=== PATIENT | male | born 1955 | race Caucasian/White ===

== ENCOUNTER 2016-10-14 15:14 | Inpatient (IN) | payer OTHER ==
--- NOTE | 2016-10-14 15:29 | ED Physician Chart ---
Chief Complaint/HPI - Patient Information Date Seen:: 10/14/16 Time Seen:: 15:15 Chief Complaint:: Chest Pain History of Present Illness:: onset x one week of intermittent exertional pressure type retrosternal localized Chest Pain with Dyspnea; no H/As, neck pain, cough, Abd. pain, A/N/V/D /c, fever, chills, or urinary s/s Allergies:: Allergies Allergy/AdvReac Type Severity Reaction Status Date / Time No Known Allergies Allergy Verified 10/14/16 15:22 Historian:: Patient, Family Member Review:: Nurse's Note Reviewed, Transfer documents Reviewed Review of Systems - Review of Systems General/Constitutional: Fever, Chills, No weight loss, No weakness, No diaphoresis, No edema, No loss of appetite Skin: No skin lesions, Rash, No bruising Head: No headache, No light-headedness Eyes: No loss of vision, No pain, No diplopia ENT: No earache, No nasal drainage, No sore throat, No tinnitus Neck: No neck pain, No swelling, No thyromegaly, No stiffness, No mass noted Cardio Vascular: Chest pain, Palpitations, No PND, No orthopnea, No edema Pulmonary: SOB, Cough, No sputum, No wheezing GI: Nausea, Vomiting, Diarrhea, No pain, No melena, No hematochezia, No constipation, No hematemesis G/U: No dysuria, No frequency, No hematuria Musculoskeletal: No bone or joint pain, No back pain, No muscle pain Endocrine: Polyuria, Polydipsia Psychiatric: No prior psych history, No depression, No anxiety, No suicidal ideation, No homicidal ideation, No auditory hallucination, No visual hallucination Hematopoietic: No bruising, No lymphadenopathy Allergic/Immuno: No urticaria, No angioedema Neurological: No syncope, No focal symptoms, No weakness, No paresthesia, No headache, No seizure, No dizziness, No confusion, No vertigo Past Medical History - Past Medical History Obtainable: Yes Past Medical History: DM, Asthma/COPD Family History: Diabetes Melitus, HTN Social History: Non Smoker, No Alcohol, No Drug Use, Surgical History: None Psychiatricy History: None Medication: Reviewed Family Medical History - Family Member Mother Other Medical History: negative family history Physical Exam - Physical Examination General/Constitutional: Awake, Well-developed, well-nourished, Alert, No distress, GCS 15, Non-toxic appearing, Ambulatory Head: Atraumatic Eyes: Lids, conjuctiva normal, PERRL, EOMI Skin: Nl inspection, No rash, No skin lesions, No ecchymosis, Well hydrated, No lymphadenopathy ENMT: External ears, nose nl, Nasal exam nl, Lips, teeth, gums nl Neck: Nontender, Full ROM w/o pain, No JVD, No nuchal rigidity, No bruit, No mass, No stridor Respiratory: Nl effort/Exclusion, Clear to Auscultation, No Wheeze/Rhonchi/Rales Cardio Vascular: RRR, No murmur, gallop, rubs, NL S1 S2 GI: No tenderness/rebounding/guarding, No organomegaly, No hernia, Normal BS's, Nondistended, No mass/bruits, No McBurney tenderness : No CVA tenderness Extremities: No tenderness or effusion, Full ROM, normal strength in all extremities, No edema, Normal digits & nails Neuro/Psych: Alert/oriented, DTR's symmetric, Normal sensory exam, Normal motor strength, Judgement/insight normal, Mood normal, Normal gait, No focal deficits Misc: normal gait, Normal back, No paraspinal tenderness Labs/Radiology/EKG Results - Lab Results Comments:: unremarkable - Radiology Results Results: NAD - EKG Interpretations Rate & Rhythm: NSR Comments:: non-specific st-t changes ED Septic Shock - . Is Septic Shock (SBP<90, OR Lactate>4 mmol\L) present?: No Reassessment (Disposition) - Reassessment Reassessment Condition:: Improved - Diagnosis Diagnosis:: Chest Pain; Dyspnea; Asthma; Unstable Angina; Angina Pectoris - Aftercare/Follow up Instructions Aftercare/Follow-Up Instructions:: Counseled pt regarding lab results/diagnosis & need follow up, Counseled pt & family regarding lab results/diagnosis & need follow up - Patient Disposition Discharge/Transfer:: Acute Care w/in this hosp Accepting Physician:: Dr. Nam Time Called:: 2039 Time Responded:: 20:50 Admitted to:: Telemetry Spoke to:: Dr. Nam Admitting Medical Physician:: Dr. Nam Condition at Disposition:: Stable, Improved
[2016-10-14] MEDS ORDERED: Aspirin 81mg Chewable Tab PO STA (15:30)
[2016-10-14] MEDS ORDERED: NITROGLYCERIN OINT 2% 1 INCH PACKET TP STA (15:30)
[2016-10-14 15:43] LABS: % BASOPHILS 0.1 % (0.0-2.0); % EOSINOPHILS 1.9 % (0.0-5.0); % LYMPHOCYTES 21.6 % (20.0-50.0); % NEUTROPHILS 68.4 % (40.0-80.0); HEMOGLOBIN 16.3 gm/dL (13.2-17.3); MEAN CELL VOLUME 88.9 fl (80-99); MEAN CORPUSCULAR HEMOGLOBIN 30.1 pg (26.0-30.0); MEAN CORPUSCULAR HGB CONC 33.9 pg (28.0-36.0); MEAN PLATELET VOLUME 7.6 fl; NEUTROPHILE ABSOLUTE 5.6 Th/cmm (1.8-8.0); PLATELET COUNT 280 Th/cmm (150-400); RED CELL DISTRIBUTION WIDTH 12.3 % (11.5-20.0); WHITE BLOOD COUNT 8.1 Th/cmm (4.8-10.8)
[2016-10-14] MEDS ORDERED: Aspirin 81mg Chewable Tab ONE (15:47)
[2016-10-14] MEDS ORDERED: NITROGLYCERIN OINT 2% 1 INCH PACKET TP ONE (15:48)
--- NOTE | 2016-10-14 16:07 | Diagnostic Imaging Report ---
Exam: Portable chest x-ray. HISTORY: Chest pain. Findings: Portable examination of the chest at 1548 hours was reviewed the study demonstrates no active pulmonic infiltrates or effusions. Mediastinal structures midline the heart is not enlarged. Bony thorax is intact. IMPRESSION: No acute disease
[2016-10-14 16:09] LABS: PROTHROMBIN TIME (TEST) 10.4 SECONDS (9.5-11.5)
[2016-10-14 16:20] LABS: BNP < 5.0 pg/mL (5.0-100.0)
[2016-10-14 16:21] LABS: TROP I < 0.01 ng/mL (0.01-0.05)
[2016-10-14 16:41] LABS: ANION GAP 10.7 (7.0-16.0); BUN - UREA NITROGEN 11 mg/dL (7-25); CALCIUM SERUM 10.1 mg/dL (8.6-10.3); CARBON DIOXIDE 23.9 mEq/L (21.0-31.0); CHLORIDE 104 mEq/L (98-107); CHOLESTEROL 199 mg/dL (<200); GLUCOSE 125 mg/dL (70-105); POTASSIUM SERUM 3.6 mEq/L (3.5-5.1); SODIUM SERUM 135 mEq/L (136-145); TRIGLYCERIDES 437 mg/dL (<150)
[2016-10-14] MEDS ORDERED: Albuterol Nebulizer 2.5mg/3mL HHN STA (20:34)
[2016-10-14] MEDS ORDERED: Albuterol Nebulizer 2.5mg/3mL HHN ONE (20:50)
[2016-10-14] MEDS ORDERED: Albuterol/Ipratropium Neb 3 ML AERS HHN PRN (22:06)
[2016-10-14] MEDS ORDERED: Azithromycin 500 MG in Sodium Chloride 0.9% 250 ML IV SCH (22:15)
[2016-10-14] MEDS: Albuterol/Ipratropium Neb 3 ML AERS HHN SCH (23:43)
--- NOTE | 2016-10-15 00:02 | Admit Criteria Form ---
Admit Criteria Forms - Admit Criteria Diagnosis: CARDIOLOGY GRG Clinical Indications for Admission to Inpatient Care ( Place 'X' for any and all applicable criteria): Hospital admission is needed for appropriate care of the patient because of ANY ONE of the following (1): [ ] I. Hemodynamic instability as indicated by ALL of the following (1)(2)(3) (4)(5) [ ]a) Vital signs or other findings not as expected for chronic patient condition or baseline [ ]b) Instability indicated by ANY ONE of the following: [ ]i) Hypotension [ ]ii) Symptomatic Tachycardia unresponsive to treatment ( e.g., analgesia, fluids, sedation as indicated) [ ]iii) Inadequate perfusion indicated by ANY ONE of the following: [ ] 1) Lactic acidosis (> 2 mmol/L) [ ] 2) New abnormal capillary refill (> 3 seconds) [ ] 3) Reduced urine output [ ] 4) New altered mental status [ ]iv) Orthostatic vital sign changes unresponsive to treatment (e.g., fluids) [ ]v) IV inotropic or vasopressor medication required to maintain adequate blood pressure or perfusion [ ] II. Severe heart failure as indicated by ANY ONE of the following(17)(18) [ ]a) Respiratory distress [ ]b) Hypotension [ ]c) Anasarca (refractory to outpatient therapy) [ ]d) Cardiac arrhythmias of immediate concern [ ]e) Myocardial ischemia [ ] III. Cardiac arrhythmias or findings of immediate concern indicated by ANY ONE of the following (19)(20): [ ] a) Heart rhythms that are inherently dangerous or unstable indicated by ANY ONE of the following (21)(22)(23): [ ] i) Resuscitated ventricular fibrillation or cardiac arrest [ ] ii) Ventricular escape rhythm [ ] iii) Sustained ventricular tachycardia (30 seconds or more of ventricular rhythm at greater than 100 beats per minute) [ ] iv) Nonsustained ventricular tachycardia and ANY ONE of the following: [ ] 1) Suspected cardiac ischemia as cause or consequence of ventricular tachycardia [ ] 2) In setting of acute myocarditis [ ] b) Unstable cardiac conduction defects indicated by ANY ONE of the following(23)(24)(25) [ ] i) Type II second-degree atrioventricular block [ ]ii) Third-degree atrioventricular block [ ]iii) New-onset left bundle branch block with suspected myocardial ischemia [ ]c) Any heart rhythm and ANY ONE of the following (21)(22)(26)(27) (28) [ ] i) Continuous long-term ECG monitoring needed (e.g., initiation of drug requiring monitoring for more than 24 hours) [ ] ii) Patient has automatic implanted cardioverter defibrillator that is repeatedly firing, malfunctioning, or in need of immediate adjustment of settings beyond the scope of ambulatory or observation care [ ]d) Heart rhythms of concern due to ANY ONE of the following: [ ] i) Hypotension [ ] ii) Respiratory distress [ ] iii) Association with other significant symptoms (e.g., bradycardia with syncope or ongoing dizziness, supraventricular tachycardia with chest pain (14)(15)(17) [ ] IV. Monitoring for cardiac contusion beyond the scope of observation care needed [A](30)(31)(32) [ ] V. Surgical or device complication (e.g., valve replacement complication , pacemaker dysfunction) (35)(41)(44)(45)(46) [ ] . Inpatient palliative care needed. [B](49) Also use Inpatient Palliative Care Criteria [ ] VII. Nonbacterial thrombotic (marantic) endocarditis (36)(43)(47)(48) [X ] VIII. Cardiology condition, symptom, or finding for which emergency and observation care has failed or are not considered appropriate. [ ] IX. Acute valvular disease requiring inpatient as indicated by ANY ONE of the following (41) [ ]a) Acute valvular regurgitation (42) [ ]b) Noninfectious valvulitis (43) [ ]c) Obstructive valve thrombosis [ ]d) Paravalvular leak [ ]e) Other significant valvular disorder remaining after emergency or observation level of care (as appropriate) [ ]X. Pericardial disease requiring inpatient treatment as indicated by ANY ONE of the following (33)(34)(35)(36)(37) [ ]a) Suspected tamponade (38)(39)(40) [ ]b) Hemopericardium [ ]c) Other significant pericardial disorder remaining after emergency or observation level of care (as appropriate) [ ] XI. Cardiac ischemia beyond scope of emergency and observation care. [ ] XII. Hypertension requiring inpatient treatment as indicated by ANY ONE of the following (6)(7)(8) [ ]a) SBP greater than 220 mm Hg or DBP greater than 120 mmHg despite treatment [ ]b) SBP greater than 140 mm Hg or DBP greater than 100 mm Hg with evidence of acute end organ damage as indicated by ANY ONE of the following [ ] i) Altered mental status [ ] ii) Acute renal failure as indicated by new onset of ANY ONE of the following (9)(10)(11)(12)(13) [ ]1) 3-fold rise in serum creatinine from baseline [ ]2) Serum creatinine greater than 4 mg/dL ( 354 micromoles/L) with acute rise greater than 0.5 mg/dL (44.2 micromoles/L) [ ]3) Reduction of more than 75% in estimated glomerular filtration rate from baseline [ ]4) Estimated glomerular filtration rate less than 35 mL/min/1.73m2 (0.59 mL/sec/1.73m2) in child up to 18 years of age [ ]5) Cessation of urine output indicated by ALL of the following [ ]A. Adequate volume status [ ]B. Inadequate urine output as indicated by ANY ONE of the following [ ]a. Urine output less than 0.3 mL/kg/hr for 24 hours [ ]b. Anuria (urine output less than 0.1 mL/kg/hr) for 12 hours [ ] iii) Aortic dissection [ ] iv) Myocardial Ischemia [ ] v) Left ventricular heart failure [ ]vi) Retinal Hemorrhage [ ]vii) Other significant finding [ ]c) Hypertension in child requiring inpatient treatment as indicated by ALL of the following(14)(15)(16) [ ] i) Outpatient treatment not effective, not available , or not appropriate [ ]ii) SBP or DBP greater than 95th percentile for age [ ]iii) Evidence of acute end organ damage as indicated by ANY ONE of the following [ ]1) Altered mental status [ ]2) Acute renal failure as indicated by new onset of ANY ONE of the following(9)(10)(11)(12)(13) [ ]A. 3-fold rise in serum creatinine from baseline [ ]B. Serum creatinine greater than 4 mg/dL (354 micromoles/L) with acute rise greater than 0.5 mg/dL (44.2 micromoles/L) [ ]C. Reduction of more than 75% in estimated glomerular filtration rate from baseline [ ]D. Estimated glomerular filtration rate less than 35 mL/min/1.73m2 (0.59 mL/sec/1.73m2) in child up to 18 years of age [ ]E. Cessation of urine output indicated by ALL of the following [ ]a. Adequate volume status [ ]b. Inadequate urine output as indicated by ANY ONE of the following [ ]i) Urine output less than 0.3 mL/kg/hr for 24 hours [ ]ii) Anuria ( urine output less than 0.1 mL/kg/hr) for 12 hours [ ]3) Severe headache [ ]4) Visual disturbance [ ]5) Retinal hemorrhage [ ]6) Other significant finding [ ]XIII. Complications of transplanted heart indicated by ANY ONE of the following(61): [ ]a) Acute graft rejection requiring inpatient management (eg, intravenous immunosuppression)(62)(63) [ ]b) Acute graft heart failure indicated by ANY ONE of the following(64): [ ]i) Hemodynamic instability [ ]ii) Cardiac arrhythmias of immediate concern [ ]iii) Pulmonary edema that is very severe (eg, mechanical ventilation needed, imminent or likely, need for 100% oxygen to keep oxygen saturation above 90%) [ ]iv) Pulmonary edema that is persistent as indicated by ALL of the following: [ ]1) New need for oxygen therapy to keep oxygen saturation above 90% (or increased FiO2 need from baseline) [ ]2) Has not improved sufficiently with emergency department or observation care IV diuretics or other heart failure treatments[E] [ ]v) Altered mental status that is severe or persistent [ ]vi) Increased creatinine (new on laboratory test) with reduction of more than 50% in estimated glomerular filtration rate from baseline [ ]vii) Progressively (ongoing) rising creatinine (known from past laboratory test) with reduction of more than 25% in estimated glomerular filtration rate from baseline [ ]viii) Acute renal failure [ ]ix) Acute peripheral ischemia (eg, examination shows pulseless, cool, mottled, or cyanotic extremity) [ ]x) Pulmonary artery catheter monitoring needed [ ]xi) Other sign or symptom of heart failure requiring inpatient treatment (ie, too severe or not responsive to outpatient and observation care treatment) [ ]c) Infection requiring inpatient management (eg, Hemodynamic instability, need for intravenous antimicrobial treatment)(66)(67)(68)(69)(70) [ ]d) Cardiac allograft vasculopathy requiring inpatient management ( eg evidence of cardiac ischemia)(71) [ ]e) Other complication of transplanted heart (eg, stroke, severe pulmonary hypertension, severe valvular dysfunction) requiring inpatient management(72) The original [facility] [employer] content created by [facility] [employer] has been revised. The portions of the content which have been revised are identified through the use of italic text or in bold, and [employer] license of [facility] has neither reviewed nor approved the modified material. All other unmodified content is copyright [facility] [employer]. Please see references footnoted in the original [facility] [employer] edition 2016 Admit Criteria Met?: Yes
[2016-10-15 01:32] VITALS: BP 117/75
[2016-10-15] MEDS ORDERED: Pneumococcal Vaccine 0.5 mL Vial IM ONE (01:45)
[2016-10-15] MEDS: Albuterol/Ipratropium Neb 3 ML AERS HHN SCH ×3 (03:26→12:27)
[2016-10-15] MEDS: methylPREDNISolone SS 40 mg Vial IVP SCH ×2 (06:57→13:10)
[2016-10-15] MEDS ORDERED: Aspirin 81mg Chewable Tab PO SCH (09:00)
[2016-10-15] MEDS ORDERED: SITAGLIPTIN PHOS PO SCH (09:00)
[2016-10-15] MEDS ORDERED: [UNRECOGNIZED DRUG - OTHER] PO SCH (09:00)
[2016-10-15] MEDS ORDERED: Non-Formulary Item 1 EA (Glipizide [Glipizide] 10 MG) PO SCH (09:00)
[2016-10-15] MEDS ORDERED: METFORMIN HCL PO SCH (09:00)
[2016-10-15] MEDS ORDERED: FLUTICASONE PROPIONATE IH SCH (09:00)
[2016-10-15] MEDS ORDERED: Fenofibrate, Micronized 134 mg Cap PO SCH (09:00)
--- NOTE | 2016-10-15 10:20 | Diagnostic Imaging Report ---
Exam: Portable examination of chest upright HISTORY: COPD. Findings: Portable upright examination of the chest over 0910 hours reviewed. No prior studies available comparison. Bony thorax intact. Mediastinal structures midline the heart is not enlarged costophrenic angles are clear. IMPRESSION: No acute disease
--- NOTE | 2016-10-15 12:18 | Consultation ---
Consult Note - Consult Note Service Date: 10/15/16 Consult Note: PHYSICIAN Consultation Note: Date of Admission: 10/14/16 Purpose of Consultation: Chest pain Chief Complaint: Chest pain History of Present Illness: Patient DERIC LOPEZ was admitted to [facility] for restorative care Telemetry with COPD EXACERBATION / CHEST PAIN R/O ACS. Past Medical History: Diagnoses TYPE 2 DIABETES MELLITUS WITHOUT COMPLICATIONS (10/14/16) HYPERLIPIDEMIA, UNSPECIFIED (10/14/16) CHRONIC OBSTRUCTIVE PULMONARY DISEASE W (ACUTE) EXACERBATION (10/14/16) UNSPECIFIED ASTHMA WITH (ACUTE) EXACERBATION (10/14/16) CHEST PAIN, UNSPECIFIED (10/14/16) Allergies Allergy/AdvReac Type Severity Reaction Status Date / Time No Known Allergies Allergy Verified 10/14/16 15:22 Vital Signs Temp 99.1 F 10/15/16 04:00 Pulse 92 10/15/16 07:23 Resp 20 10/15/16 07:23 BP 97/64 10/15/16 04:00 Pulse Ox 98 10/15/16 07:23 Intake & Output 10/14/16 10/15/16 10/15/16 18:59 06:59 18:59 Weight (lbs) 70.76 kg Other: # Voids 1 # Bowel Movements 0 Laboratory Results - last 24 hr 10/14/16 10/15/16 10/15/16 23:35 09:15 09:15 Hemoglobin A1c % 6.9 H Troponin I < 0.01 L 0.01 Home Medication Medication Instructions Recorded Type Fluticasone Propionate [Flovent 12 gm IH TID 10/14/16 History Hfa] Glipizide 10 mg PO BID 10/14/16 History Simvastatin [Zocor] 10 mg PO DAILY 10/15/16 History Sitagliptin Phos/Metformin HCl 1 tab PO BID 10/15/16 History [Janumet 50-500 mg Tablet] Zafirlukast 10 mg PO DAILY 10/15/16 History Current Medications Generic Name Dose Route Start Last Admin Trade Name Freq PRN Reason Stop Dose Admin Albuterol/Ipratropium 3 ml 10/15/16 00:00 10/15/16 07:22 Duoneb [facility] 12/14/16 00:00 3 ml Q4HR ZAYDA Administration Albuterol/Ipratropium 3 ml 10/14/16 22:06 Duoneb Neb HHN 12/13/16 22:05 Q2HR PRN Shortness of Breath or Wheeze Aspirin 81 mg 10/15/16 09:00 10/15/16 09:06 Aspirin Chewable PO 12/14/16 08:59 81 mg DAILY ZAYDA Administration Fenofibrate 134 mg 10/15/16 09:00 10/15/16 09:06 Tricor PO 12/14/16 08:59 134 mg DAILY ZAYDA Administration Glipizide 10 mg 10/15/16 17:00 Glucotrol PO 12/14/16 16:59 BID ZAYDA Ceftriaxone Sodium 1 gm/ 50 mls @ 100 mls/hr 10/14/16 22:15 10/15/16 01:05 Dextrose IV 12/13/16 22:14 100 mls/hr Q24H ZAYDA Administration Azithromycin 500 mg/ Sodium 250 mls @ 250 mls/hr 10/14/16 22:15 10/15/16 02: 05 Chloride IV 12/13/16 22:14 250 mls/hr Q24HR ZAYDA Administration Methylprednisolone Sodium Succinate 40 mg 10/15/16 05:00 10/15/16 06:57 Solu-Medrol IVP 12/14/16 04:59 40 mg Q8HR ZAYDA Administration Miscellaneous 12 gm 10/15/16 09:00 Fluticasone Propionate [Flovent Hfa] IH 12/14/16 08:59 TID ZAYDA Miscellaneous 1 tab 10/15/16 09:00 Sitagliptin Phos/Metformin Hcl [Janumet 50-500 Mg Tablet] PO 12/14/16 08:59 BID ZAYDA Montelukast Sodium 10 mg 10/15/16 21:00 Singulair PO 12/14/16 20:59 HS ZAYDA Nitroglycerin 0.4 mg 10/14/16 22:07 Nitrostat SL 12/13/16 22:06 Q5MIN PRN Chest Pain Simvastatin 20 mg 10/15/16 21:00 Zocor PO 12/14/16 20:59 HS ZAYDA Protocol Review of Systems: A 12 point ROS was reviewed with the pertinent positive and negatives noted in the HPI. Social History Smoking Status no smoking Former smoker Drug Use no drug use or alcohol No Alcohol Use No Physical Exam: General: Short of breath HEENT: Normal Cardio: S1-S2 no S3 soft S4 Respiratory: Occasional wheeze and rhonchi Abdominal: No organomegaly Genital/Urinary: Normal normal good peripheral pulses Extremities: Neurological: No focal neurological deficit Assessment: Chest pain atypical for coronary artery disease Diabetes mellitus type 2 Hypertension Asthma Plan: Troponin normal EKG echocardiogram Signed, Hayder Duvall. 10/15/[id number]
== END 2016-10-15 16:30 | disposition home or self-care (01) | DRG 191 ==
LOC: ER 15:14 → TELE 21:55
PROVIDERS: ADMIT Internal Medicine; ATTEND Internal Medicine
PROC: 3E0234Z Introduction of Serum, Toxoid and Vaccine into Muscle, Percutaneous Approach (ICD-10-PCS; principal; 2016-10-15)
DX: J44.1 Chronic obstructive pulmonary disease with (acute) exacerbation (principal); J45.901 Unspecified asthma with (acute) exacerbation; I24.9 Acute ischemic heart disease, unspecified; I25.10 Atherosclerotic heart disease of native coronary artery without angina pectoris; E11.9 Type 2 diabetes mellitus without complications; E78.5 Hyperlipidemia, unspecified; Z82.49 Family history of ischemic heart disease and other diseases of the circulatory system; Z83.3 Family history of diabetes mellitus; Z79.84 Long term (current) use of oral hypoglycemic drugs; Z23 Encounter for immunization
CPT/HCPCS: 36415-UA; 71010-TC; 80048-TC; 80061-TC; 82550-TC; 83036-90; 83880-TC; 84484-TC; 85025-TC; 85610-TC; 93005; 94640; 94760; J0456; J0696; J2920; J7613; Z7610